=== PATIENT | female | born 1955 | race Caucasian/White ===

== ENCOUNTER → 2020-04-13 | Outpatient (CLI) | payer OTHER ==
[~2020-04-13] MED LIST: AMLO5TAB10 PO; MOME13HF5 IH; TIOT18CA IH
== END ==
LOC: LAB 14:45
PROVIDERS: ATTEND Registered Nurse
DX: Z01.812 Encounter for preprocedural laboratory examination (principal); H26.9 Unspecified cataract; Z20.828 Contact with and (suspected) exposure to other viral communicable diseases
CPT/HCPCS: U0003-CS

== ENCOUNTER → 2020-04-17 | Day surgery (SDC) | payer OTHER ==
[~2020-04-17] MED LIST changes: +BALANCED SALT IRRIG OPHTH SOLN 15 ML BOTTLE. IRR ONE; +CATARACT OPHTH GEL 0.5 ML SYRINGE. OS ONE; +CHONDROIT-SOD-HYALURONATE KIT. OS ONE; +EPINEPHrine AMPULE 0.5 MG in BALANCED SALT IRRIG SOLN PLUS 500 ML IO ONE; +ERYTHROMYCIN 0.5% OPHTH OINTMENT 1GM TUBE. OS ONE; +HYALURONIDASE 75UNITS in LIDOCAINE 2% PF OPHTH 10 ML SYRINGE. ONE; +HYALURONIDASE 75UNITS in LIDOCAINE 2% PF OPHTH 10 ML SYRINGE. OS ONE; +IPRATRPIUM/ALBUTEROL 0.5/2.5MG 3 ML NEBU. NEB PRN; +IV RINGERS SOLUTION,LACTATED 1,000 ML IV SCH; +KETOROLAC TROMETHAMINE 0.5% OPHTH SOLUTION BOTTLE. ONE; +KETOROLAC TROMETHAMINE 0.5% OPHTH SOLUTION BOTTLE. OS SCH; +MIDAZOLAM HCL PF 2 MG/2 ML VIAL. IV ONE; +MOXIFLOXACIN 0.5% OPHTH SOLUTION 3ML BOTTLE. OS SCH; +ONDANSETRON PF 4 MG/2 ML VIAL. IV PRN; +PHENYLEPHRINE 10% OPHTH SOLUTION 5ML BOTTLE. OS PRN; +POVIDONE-IODINE 5% OPHTH SOLUTION 30ML BOTTLE. OS ONE; +PROPOFOL 10,000 MCG/ML (20ML) VIAL IV ONE; +TETRACAINE 0.5% OPHTH SOLUTION 4ML BOTTLE. OS ONE; +TETRACAINE 0.5% OPHTH SOLUTION 4ML BOTTLE. OU ONE; +prednisoLONE ACETATE 1% OPHTH SUSPENSION 5ML BOTTLE. ONE; +prednisoLONE ACETATE 1% OPHTH SUSPENSION 5ML BOTTLE. OS SCH
[2020-04-17] MEDS: MOXIFLOXACIN 0.5% OPHTH SOLUTION 3ML BOTTLE. OS SCH ×3 (09:43→09:53)
--- NOTE | 2020-04-17 10:46 | PDOC4 ---
Phaco IOL/Cataract/OS Date of Procedure: Apr 17, 2020 Preoperative Diagnosis: Senile Cataract, Left Eye Postoperative Diagnosis: Senile Cataract, Left Eye Anesthesia: Local (Block) with monitored anesthesia care Surgeon: Laurie Tapia D.O. Procedure: Left Phacoemulsification with Intraocular Lens Implant Findings: Senile Cataract Indications: Worsening vision interfering with patient's lifestyle Narrative: After discussing the risks, complications and alternatives, including but not limited to loss of vision, infection, bleeding, swelling, anesthetic reaction, capsule rupture with vitreous loss, etc., the patient was given a peribulbar block under mild IV sedation and cardiac monitoring. Pressure was applied to the eye for approximately 10 minutes. The patient was transferred to the main operating room and was prepped and draped in the usual sterile fashion and positioned under the microscope. A lid speculum was placed. A temporal clear corneal incision was made with a keratome and viscoelastic was injected into the eye. A side port incision was made. A continuous tear capsulorrhexis was performed, then hydrodissection was accomplished with balanced salt solution. The phacoemulsification needle was placed in the eye and the nucleus was emulsified. The remaining cortical material was removed with the irrigation and aspiration apparatus. The capsule was polished as needed. The posterior capsule was noted to be clean and intact. Viscoelastic was injected into the eye inflating the capsular bag. An intraocular lens was injected into the eye, unfolding as desired and was positioned in the capsular bag. The viscoelastic was aspirated from the eye. The wound edges were hydrated with balanced salt solution and there were no leaks. Viscoelastic was injected over the limbal incisions. Antibiotic and steroid were placed on the eye. The lid speculum was removed, the eye patched shut and a Hernandes shield applied. There were no complications and the patient was taken to the PACU in good condition. LAURIE TAPIA DO Apr 17, 2020 10:46
[2020-04-17 11:00] VITALS: BP 160/66
== END | disposition home or self-care (01) ==
LOC: SURG 08:55
PROVIDERS: ATTEND Ophthalmology
DX: H25.812 Combined forms of age-related cataract, left eye (principal); Z88.2 Allergy status to sulfonamides; Z79.899 Other long term (current) drug therapy
CPT/HCPCS: 66984; J0171; J2704; V2632

== ENCOUNTER → 2020-05-04 | Outpatient (CLI) | payer OTHER ==
[2020-04-17 11:00] VITALS: BP 160/66
[~2020-05-04] MED LIST changes: -BALANCED SALT IRRIG OPHTH SOLN 15 ML BOTTLE. IRR ONE; -CATARACT OPHTH GEL 0.5 ML SYRINGE. OS ONE; -CHONDROIT-SOD-HYALURONATE KIT. OS ONE; -EPINEPHrine AMPULE 0.5 MG in BALANCED SALT IRRIG SOLN PLUS 500 ML IO ONE; -ERYTHROMYCIN 0.5% OPHTH OINTMENT 1GM TUBE. OS ONE; -HYALURONIDASE 75UNITS in LIDOCAINE 2% PF OPHTH 10 ML SYRINGE. ONE; -HYALURONIDASE 75UNITS in LIDOCAINE 2% PF OPHTH 10 ML SYRINGE. OS ONE; -IPRATRPIUM/ALBUTEROL 0.5/2.5MG 3 ML NEBU. NEB PRN; -IV RINGERS SOLUTION,LACTATED 1,000 ML IV SCH; -KETOROLAC TROMETHAMINE 0.5% OPHTH SOLUTION BOTTLE. ONE; -KETOROLAC TROMETHAMINE 0.5% OPHTH SOLUTION BOTTLE. OS SCH; -MIDAZOLAM HCL PF 2 MG/2 ML VIAL. IV ONE; -MOXIFLOXACIN 0.5% OPHTH SOLUTION 3ML BOTTLE. OS SCH; -ONDANSETRON PF 4 MG/2 ML VIAL. IV PRN; -PHENYLEPHRINE 10% OPHTH SOLUTION 5ML BOTTLE. OS PRN; -POVIDONE-IODINE 5% OPHTH SOLUTION 30ML BOTTLE. OS ONE; -PROPOFOL 10,000 MCG/ML (20ML) VIAL IV ONE; -TETRACAINE 0.5% OPHTH SOLUTION 4ML BOTTLE. OS ONE; -TETRACAINE 0.5% OPHTH SOLUTION 4ML BOTTLE. OU ONE; -prednisoLONE ACETATE 1% OPHTH SUSPENSION 5ML BOTTLE. ONE; -prednisoLONE ACETATE 1% OPHTH SUSPENSION 5ML BOTTLE. OS SCH
== END | disposition home or self-care (01) ==
LOC: LAB 09:06
DX: Z20.828 Contact with and (suspected) exposure to other viral communicable diseases (principal)
CPT/HCPCS: U0003-CS

== ENCOUNTER → 2020-05-08 | Day surgery (SDC) | payer OTHER ==
[~2020-05-08] MED LIST changes: +BALANCED SALT IRRIG OPHTH SOLN 15 ML BOTTLE. IRR ONE; +CATARACT OPHTH GEL 0.5 ML SYRINGE. OD ONE; +CHONDROIT-SOD-HYALURONATE KIT. OD ONE; +EPINEPHrine AMPULE 0.5 MG in BALANCED SALT IRRIG SOLN PLUS 500 ML IO ONE; +ERYTHROMYCIN 0.5% OPHTH OINTMENT 1GM TUBE. OD ONE; +HYALURONIDASE 75UNITS in LIDOCAINE 2% PF OPHTH 10 ML SYRINGE. OD ONE; +IPRATRPIUM/ALBUTEROL 0.5/2.5MG 3 ML NEBU. NEB PRN; +IV RINGERS SOLUTION,LACTATED 1,000 ML IV SCH; +KETOROLAC TROMETHAMINE 0.5% OPHTH SOLUTION BOTTLE. OD SCH; +KETOROLAC TROMETHAMINE 0.5% OPHTH SOLUTION BOTTLE. ONE; +MIDAZOLAM HCL PF 2 MG/2 ML VIAL. IV ONE; +MOXIFLOXACIN 0.5% OPHTH SOLUTION 3ML BOTTLE. OD SCH; +ONDANSETRON PF 4 MG/2 ML VIAL. IV PRN; +POVIDONE-IODINE 5% OPHTH SOLUTION 30ML BOTTLE. OD ONE; +PROPOFOL 10,000 MCG/ML (20ML) VIAL IV ONE; +TETRACAINE 0.5% OPHTH SOLUTION 4ML BOTTLE. OD ONE; +TETRACAINE 0.5% OPHTH SOLUTION 4ML BOTTLE. OU ONE; +prednisoLONE ACETATE 1% OPHTH SUSPENSION 5ML BOTTLE. OD SCH; +prednisoLONE ACETATE 1% OPHTH SUSPENSION 5ML BOTTLE. ONE
[2020-05-08] MEDS: MOXIFLOXACIN 0.5% OPHTH SOLUTION 3ML BOTTLE. OD SCH ×3 (09:13→09:23)
--- NOTE | 2020-05-08 10:14 | PDOC4 ---
Phaco IOL/Cataract/OD Date of Procedure: May 08, 2020 Preoperative Diagnosis: Preoperative Diagnosis: Senile Cataract, Right Eye Postoperative Diagnosis: Senile Cataract, Right Eye Anesthesia: Local with monitored anesthesia care Surgeon: Laurie Tapia D.O. Procedure: Right Phacoemulsification with Intraocular Lens Implant Findings: Senile Cataract Indications: Worsening vision interfering with patient's lifestyle Narrative: After discussing the risks, complications and alternatives, including but not limited to loss of vision, infection, bleeding, swelling, anesthetic reaction, capsule rupture with vitreous loss, etc., the patient was given a peribulbar block under mild IV sedation and cardiac monitoring. Pressure was applied to the eye for approximately 10 minutes. The patient was transferred to the main operating room and was prepped and draped in the usual sterile fashion and positioned under the microscope. A lid speculum was placed. A temporal clear corneal incision was made with a keratome and viscoelastic was injected into the eye. A side port incision was made. A continuous tear capsulorrhexis was performed, then hydrodissection was accomplished with balanced salt solution. The phacoemulsification needle was placed in the eye and the nucleus was emulsified. The remaining cortical material was removed with the irrigation and aspiration apparatus. The capsule was polished as needed. The posterior capsule was noted to be clean and intact. Viscoelastic was injected into the eye inflating the capsular bag. An intraocular lens was injected into the eye, unfolding as desired and was positioned in the capsular bag. The viscoelastic was aspirated from the eye. The wound edges were hydrated with balanced salt solution and there were no leaks. Viscoelastic was injected over the limbal incisions. Antibiotic and steroid were placed on the eye. The lid speculum was removed, the eye patched shut and a Hernandes shield applied. There were no complications and the patient was taken to the PACU in good condition. LAURIE TAPIA DO May 08, 2020 10:14
[2020-05-08 10:30] VITALS: BP 149/69
== END | disposition home or self-care (01) ==
LOC: SURG 08:40
PROVIDERS: ATTEND Ophthalmology
DX: H25.811 Combined forms of age-related cataract, right eye (principal); F17.210 Nicotine dependence, cigarettes, uncomplicated; Z88.2 Allergy status to sulfonamides; Z79.899 Other long term (current) drug therapy
CPT/HCPCS: 66984; J0171; J2704; V2632